=== PATIENT | male | born 1970 | race Hispanic/Latino ===

== ENCOUNTER 2018-11-09 14:00 | Emergency (ER) | payer SELFPAY ==
[~2018-11-09] VITALS: Ht 167.6 cm; Wt 81.6 kg
[2018-11-09] MEDS ORDERED: MORPHINE SULFATE 2 MG/ML SYR 1ML IV STA (14:19)
[2018-11-09] MEDS ORDERED: ONDANSETRON HCL INJ 2MG/ML 2ML 2 MG/ML VIAL IV STA (14:19)
--- NOTE | 2018-11-09 14:45 | Diagnostic Imaging Report ---
Exam: Left hand 3 views History: Trauma to distal third and fourth digits Comparison: None. Findings: There is an acute, oblique intra-articular fracture, minimally displaced, of the base of the fourth distal phalanx with overlying soft tissue defect. Soft tissue laceration of the distal aspect of the third ray without underlying displaced fracture. 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 Remaining skeletal structures are intact. Joint spaces are well-maintained. No additional focal soft tissue abnormalities. Impression: Acute, mildly displaced probably open intra-articular fracture of the base of the fourth distal phalanx. Soft tissue laceration of the distal aspect of the third ray without underlying displaced fracture. 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 Signed by: Dr. Ross Serrano M.D. on 11/09/2018 2:42 PM
[2018-11-09] MEDS ORDERED: MORPHINE SULFATE 2 MG/ML SYR 1ML IV ONE (15:00)
[2018-11-09] MEDS ORDERED: ONDANSETRON HCL INJ 2MG/ML 2ML 2 MG/ML VIAL IV ONE (15:00)
--- NOTE | 2018-11-09 15:11 | NUR ---
DR BOLDEN CALLED SPOKE TO DR RAE.
[2018-11-09] MEDS ORDERED: CEFAZOLIN SOD 1 GM VIAL IV ONE (15:45)
--- NOTE | 2018-11-09 16:03 | NUR ---
DR BOLDEN AT BEDSIDE.
[2018-11-09] MEDS ORDERED: KEFLEX500 MG PO (16:53)
[2018-11-09 16:55] VITALS: BP 167/89
[2018-11-09] MEDS ORDERED: TYLENOL # 31 EA PO (16:57)
--- NOTE | 2018-11-09 17:16 | Consultation ---
DATE OF CONSULTATION: November 09, 2018 [facility]/EMERGENCY ROOM CONSULTATION HAND SURGERY CONSULTATION REQUESTING PHYSICIAN: Dr. Tanisha Malone. HISTORY OF PRESENT ILLNESS: The patient is a 48-year-old [id number] male who states that around 1:00 or 1:30 this afternoon he was working near a belt-driven machine that appeared to be jammed. He used his left hand to try to free the belt, and his fingers were caught between the belt and the serena. He sustained injuries to the left long finger and the left ring finger, and he came to the [facility] room for care and treatment. Initial radiographs show a displaced fracture of the left long finger distal phalanx with intraarticular extension, and there is an overlying wound indicating that this is an open fracture. He also has a laceration over the middle phalanx of the left long finger and a laceration over the distal phalanx of the left ring finger. Consultation is now requested for urgent care and treatment. PERTINENT PHYSICAL EXAMINATION: The patient's vital signs are stable. He is in moderate acute distress. A block utilizing a 50/50 mixture of 1% Xylocaine plain and 0.25% plain Marcaine was used to place digital blocks around the base of the left long finger and the left ring finger. Approximately 4 to 5 mL was used per finger. At this point the dressings were removed and the fingers were soaked in a dilute Betadine solution. Once the fingers were completely numb, inspection of the wounds revealed near circumferential injuries to both the distal phalanges of the long finger and the ring finger. There was adequate capillary refill, and it appeared that the skin bridges were located on the radial and volar side of the fingers. After gently debriding the superficial particulate matter, inspection showed open fracture of the left long finger distal phalanx and an exposed DIP joint of the left ring finger. The joints were irrigated copiously with the dilute Betadine solution. At this point, repairs utilizing 4-0 nylon suture in an interrupted fashion were carried out to approximate the soft tissues and close the soft-tissue envelope over the bony structures. The patient tolerated the procedure well. Topical antimicrobial ointment and sterile dressings were applied. PLAN: The patient was then discharged on oral Keflex and Tylenol No. 3. He will follow up in the office in 24 hours where he will be scheduled for definitive repair of injured structures. Job#: [id number] EV
== END 2018-11-09 17:11 | disposition home or self-care (01) ==
LOC: FSED 14:00
DX: S62.633B Displaced fracture of distal phalanx of left middle finger, initial encounter for open fracture (principal); S61.213A Laceration without foreign body of left middle finger without damage to nail, initial encounter; S61.215A Laceration without foreign body of left ring finger without damage to nail, initial encounter; W31.89XA Contact with other specified machinery, initial encounter; Y99.0 Civilian activity done for income or pay; F17.210 Nicotine dependence, cigarettes, uncomplicated
CPT/HCPCS: 12042; 64450; 73130; 99284; J0690